=== PATIENT | male | born 1970 | race Caucasian/White ===

== ENCOUNTER 2022-12-03 13:35 | Outpatient (CLI) | payer OTHER, SELFPAY ==
--- NOTE | 2022-12-03 14:00 | CRLHL7_ITS ---
For Patients: As a result of the Century Cures Act, medical imaging exams and procedure reports are released immediately into your electronic medical record. You may view this report before your referring provider. If you have questions, please contact your health care provider. Indication: Paratracheal lymphadenopathy Technique: Grayscale ultrasound of the neck performed. Comparison: None available. Findings: Sonogram of the neck performed bilaterally. No enlarged lymph nodes are present. No fluid collections or masses. Impression: Negative sonogram of the neck without adenopathy. Dictated by Marco De Leon MD @ 12/05/2022 6:42:27 AM (Electronically Signed)
== END 2022-12-03 13:36 | disposition home or self-care (01) ==
PROVIDERS: PCP Nurse Practitioner Family; Visit Provider Nurse Practitioner Family
DX: R59.0 Localized enlarged lymph nodes (principal)
CPT/HCPCS: 76536